=== PATIENT | female | born 1985 | race Caucasian/White ===

== ENCOUNTER 2017-12-12 13:24 | Inpatient (IN) | payer MEDICARE, MEDICAID ==
[2017-12-12] MEDS ORDERED: NS 0.9% 1000 ML* 1,000 ML IV ONE (13:30)
[2017-12-12 13:53] LABS: ABS Basophils 0.1 10^3/ul (0-0.2); ABS Eosinophils 0.1 10^3/ul (0-0.6); ABS Lymphocytes 1.6 10^3/ul (1.0-4.8); ABS Monocytes 0.6 10^3/ul (0-0.8); ABS Neutrophils 6.1 10^3/ul (1.5-7.7); ABS Nucleated RBC 0 10^3/ul; Eosinophil % 0.8 % (0-6); Hematocrit 34 % (35-47); Hemoglobin 11.1 g/dl (12.0-16.0); Lymphocyte % 18.5 % (25-47); Mean Corpuscular HGB Conc 33 g/dl (31-36); Mean Corpuscular Hemoglobin 28 pg (27-31); Mean Corpuscular Volume 85 fL (80-97); Mean Platelet Volume 8.1 um3 (7.4-10.4); Nucleated Red Blood Cells % 0; Platelet Count 342 10^3/ul (150-450); Red Blood Count 3.97 10^6/ul (4.00-5.40); Red Cell Distribution Width 15 % (10.5-15); White Blood Count 8.4 10^3/ul (3.5-10.8)
[2017-12-12 13:55] LABS: Urine Appearance Clear; Urine Blood Negative (Negative); Urine Color Yellow; Urine Ketones Negative (Negative); Urine Protein Negative (Negative); Urine Specific Gravity 1.005 (1.010-1.030); Urine Urobilinogen Negative (Negative)
[2017-12-12] MEDS ORDERED: Succinylcholine* 20 MG/ML 10 ML VIAL ONE (15:00)
[2017-12-12] MEDS ORDERED: Etomidate* 2 MG/ML 20 ML VIAL (40 MG) ONE (15:00)
[2017-12-12] MEDS ORDERED: Charcoal ACTIVATED* 25 GM/120 ML BTL NG TUBE ONE (15:22)
[2017-12-12] MEDS ORDERED: Propofol* 100 ML ONE (15:39)
[2017-12-12] MEDS ORDERED: Ondansetron INJ* 2 MG/ML VIAL IV ONE (15:42)
[2017-12-12] MEDS ORDERED: Ondansetron INJ* 2 MG/ML VIAL IV PRN (15:42)
--- NOTE | 2017-12-12 15:57 | RAD ---
INDICATION: Intubation COMPARISON: None TECHNIQUE: An AP portable view obtained at 1546 hours is submitted. FINDINGS: Bones/Soft Tissues: There are no acute bony findings. There is no endotracheal tube 4 cm above the yenifer. There is a nasogastric tube passing normally through the mediastinum Cardiomediastinal: The cardiomediastinal silhouette is normal. Lungs: There are no infiltrates. Pleura: There are no pleural effusions. Other: None IMPRESSION: ENDOTRACHEAL AND NASOGASTRIC TUBES IN EXPECTED POSITIONS. LUNGS CLEAR
[2017-12-12] MEDS ORDERED: Midazolam IV for DRIP* 100 MG in NS 0.9% 100 ML* 80 ML IV SCH (16:00)
[2017-12-12] MEDS ORDERED: Propofol* 500 MG/50 ML BTL IV SCH ×2 (16:00→17:00)
[2017-12-12] MEDS ORDERED: Pantoprazole IV* 40 MG IV SCH (16:00)
[2017-12-12] MEDS: NS 0.9% 1000 ML* 1,000 ML IV SCH (17:50)
[2017-12-12] MEDS: Midazolam IV for DRIP* 100 MG in NS 0.9% 100 ML* 80 ML IV SCH (18:33)
[2017-12-12] MEDS: PEG 3000 GI LAVAGE* 1 GALLON SCH ×6 (19:39→22:45)
--- NOTE | 2017-12-12 20:58 | RAD ---
INDICATION: Altered mental status. COMPARISON: There are no prior studies available for comparison. TECHNIQUE: Contiguous axial sections of the brain were obtained from the skull base to the vertex without contrast. FINDINGS: The ventricles, cisterns and sulci are within normal limits. No significant focal abnormality or mass effect is seen. There is no evidence for hemorrhage. No significant focal osseous abnormality is seen. The visualized portion of the paranasal sinuses and mastoid air cells appear clear. IMPRESSION: NO EVIDENCE FOR GROSS ACUTE INFARCT, MASS EFFECT OR HEMORRHAGE.
[2017-12-12] MEDS: Propofol* 100 ML IV SCH (21:22)
--- NOTE | 2017-12-12 22:24 | HP ---
CC: Dr. Yulissa Alvarado; Dr. Patrick * HISTORY AND PHYSICAL: DATE OF ADMISSION: 12/12/17 TIME OF EVALUATION: 3 p.m. PRIMARY CARE PROVIDER: Dr. Yulissa Alvarado CONSULTING CRITICAL CARE PHYSICIAN: Dr. Patrick. CHIEF COMPLAINT: Unresponsive. HISTORY OF PRESENT ILLNESS: Ms. Del Rio is a 32-year-old lady with a past medical history of depression, prior suicide attempt with overdose of psychiatric medications, who was brought in to the emergency room by EMS due to unresponsiveness. The patient is unresponsive, intubated at this time, and unable to provide any history. Her friend, Elizabeth العراقي, phone number [phone] provides the history at bedside. She states that she knows Ms. Del Rio for many years and that she works for her. She arrived at her home after 10 today and her friend felt that she was a little strange as she was not talking much, but she did mention that she had not slept well for the past 2 nights. Ms. Del Rio and Ms. العراقي worked together in the garden until 11:30 when she noticed that the patient's lips looked different. The friend states that the lips were swollen, but EMS commented that the lips were blue. The patient's friend states that she was unable to ambulate without help. They were able to bring her inside the home, but by the time she arrived, she was already unresponsive. EMS was called and as per their report, the patient was unresponsive. She received Narcan and Benadryl with no response and she remained unconscious for the entire transport. The patient was found to have medication bottles with her of gabapentin 600 mg she takes 1 tablet every night, dispensed 30 tablets and this was filled on ; bupropion extended release 150 mg 1 tablet p.o. twice a day, 60 tablets were dispensed on 11/28/17; and amitriptyline 10 mg 1 tablet p.o. at bedtime 30 tablets that were dispensed on 12/05/17. As per ED nurse, all the bottles were empty according to EMS report. The patient's friend thinks that she still had pills in her bottles, but the ones I have now in my hand, they are all empty. So, it is unclear if these are the medications she took and if she did it is unclear how many pills she took in the end. Poison Control was contacted and their recommendations was for intubation, NG tube placement with activated charcoal administration followed by bowel irrigation with polyethylene glycol. PAST MEDICAL HISTORY: Depression with prior history of 5 hospitalizations with 1 suicide attempt with psychiatric medications overdose leading to ICU admission at [facility]. This was obtained from a prior H and P from June 2007 and there is no other medical information available at this time. PAST SURGICAL HISTORY: Unable to obtain. MEDICATION LIST: 1. Alprazolam 0.25 to 0.5 mg p.o. q.6 hours p.r.n. anxiety. 2. Amitriptyline 10 mg p.o. at bedtime. 3. Bupropion SR 150 mg p.o. b.i.d. 4. Vitamin B12 1000 mcg p.o. daily. 5. Gabapentin 600 mg p.o. at bedtime. ALLERGIES: Not able to obtain any history of allergy from the patient as she is unresponsive. FAMILY HISTORY: As per records, mother and sister have a history of depression. No family history of suicide. As per her friend, Elizabeth العراقي, the patient is estranged from her family and does not have much contact. SOCIAL HISTORY: I am unable to obtain at this time. REVIEW OF SYSTEMS: Unable to obtain from the patient. PHYSICAL EXAMINATION VITAL SIGNS: Temperature 97.7, heart rate is 106, respiratory rate is 17, oxygen saturation is 100%, blood pressure is 131/77. HEENT: Pupils are equal, reactive to light. Moist mucous membranes. CHEST: Breath sounds present bilaterally with no added sounds. CVS: Normal S1, S2. Regular rate and rhythm. ABDOMEN: Soft. Bowel sounds are present. EXTREMITIES: No edema. NEURO: The patient is unresponsive even to painful stimuli at this point. LABORATORY DATA: The patient had a CBC that showed WBC of 8.4, hemoglobin 11.1 , hematocrit 34, platelets 342, 72% neutrophils. ABG shows a pH of 7.36, pCO2 of 38, pO2 of 65, bicarb 22. Chemistry showed a sodium of 136, potassium 3.9, chloride 108, bicarb 23, BUN 7, creatinine 0.89, glucose 87. Lactic acid 0.4. Calcium 8.4. Magnesium 1.9. LFTs are normal. Ammonia 28. TSH 0.9. Urinalysis was negative. Urine toxicology was positive for benzos and cannabinoids. Acetaminophen and serum alcohol level were negative. ASSESSMENT AND PLAN: Ms. Del Rio is a 32-year-old lady with a past medical history of depression and prior suicide attempt that presented to the emergency room after becoming unresponsive with suspected drug overdose. The patient will be admitted to the intensive care unit and I am going to check a CT of the brain to rule out [employer] issue. As per Poison Control recommendation, we are going to repeat an EKG in 2 hours and monitor her QT interval. She will be sedated with benzodiazepines ( midazolam) and we are going to proceed with bowel irrigation following the protocol that was sent from the Poison Control Center for whole bowel irrigation as tolerated. A consultation request was placed for Dr. Patrick to assume this patient's care. She will be monitored closely in the intensive care unit. DVT prophylaxis. Subcutaneous heparin. Code status is full. TIME SPENT: Approximately 70 minutes of critical care time were spent to complete the admission. [id number]/CPS #: [id number]
[2017-12-12] MEDS: Heparin VIAL(*) 5000 UNITS/ML VIAL (FIVE THOUSAND) SUBCUT SCH (22:41)
[2017-12-13] MEDS: PEG 3000 GI LAVAGE* 1 GALLON SCH ×14 (00:08→14:25)
[2017-12-13] MEDS: NS 0.9% 1000 ML* 1,000 ML IV SCH (00:10)
[2017-12-13 00:12] LABS: EGFR Non-African American 90.1 (>60)
[2017-12-13] MEDS: KCL 20 MEQ/100 ML IVPREMIX* 20 MEQ/100 ML BAG IV SCH ×2 (00:38→02:35)
[2017-12-13] MEDS: Chlorhexidine MOUTHWASH 0.12%* 15 ML UDC TOPICAL SCH ×4 (00:44→13:52)
[2017-12-13] MEDS: Midazolam IV for DRIP* 100 MG in NS 0.9% 100 ML* 80 ML IV SCH (02:16)
[2017-12-13] MEDS: Propofol* 100 ML IV SCH (03:20)
[2017-12-13] MEDS: Heparin VIAL(*) 5000 UNITS/ML VIAL (FIVE THOUSAND) SUBCUT SCH ×2 (05:47→15:28)
[2017-12-13 06:17] LABS: ABS Basophils 0.1 10^3/ul (0-0.2); ABS Eosinophils 0.1 10^3/ul (0-0.6); ABS Lymphocytes 1.1 10^3/ul (1.0-4.8); ABS Monocytes 1.1 10^3/ul (0-0.8); ABS Neutrophils 11.8 10^3/ul (1.5-7.7); ABS Nucleated RBC 0 10^3/ul; Eosinophil % 0.7 % (0-6); Hematocrit 33 % (35-47); Hemoglobin 10.9 g/dl (12.0-16.0); Lymphocyte % 7.9 % (25-47); Mean Corpuscular HGB Conc 33 g/dl (31-36); Mean Corpuscular Hemoglobin 28 pg (27-31); Mean Corpuscular Volume 85 fL (80-97); Mean Platelet Volume 7.9 um3 (7.4-10.4); Nucleated Red Blood Cells % 0; Platelet Count 343 10^3/ul (150-450); Red Blood Count 3.91 10^6/ul (4.00-5.40); Red Cell Distribution Width 16 % (10.5-15); White Blood Count 14.1 10^3/ul (3.5-10.8)
[2017-12-13 06:35] LABS: EGFR Non-African American 110.2 (>60)
[2017-12-13] MEDS ORDERED: fentaNYL* 50 MCG/ML 2 ML VIAL (100 MCG VIAL) IV SLOW PU ONE (11:18)
[2017-12-13] MEDS ORDERED: fentaNYL* 50 MCG/ML 2 ML VIAL (100 MCG VIAL) ONE (11:22)
[2017-12-13] MEDS ORDERED: Ondansetron 40 MG VIAL* 2 MG/ML 20 ML VIAL IV PRN (13:07)
[2017-12-13] MEDS ORDERED: LORazepam INJ* 2 MG/ML 1 ML VIAL ONE ×3 (13:27→13:35)
[2017-12-13] MEDS ORDERED: LORazepam INJ* 2 MG/ML 1 ML VIAL IV PUSH ONE ×3 (13:40→18:00)
[2017-12-13] MEDS ORDERED: Morphine INJ* 10 MG/ML 1 ML CARPUJECT IV PRN (14:01)
[2017-12-13] MEDS ORDERED: Acetaminophen TAB* 325 MG PO PRN (14:02)
--- NOTE | 2017-12-13 14:10 | PN ---
Progress Note - Progress Note Date of Service: 12/13/17 Note: CRITICAL CARE MEDICINE Date: 12/13/17 Time: 1300 SUBJECTIVE: Patient seen and examined. PHYSICAL EXAM: Vital Signs: Reviewed. Neurologic: awake on vent. following commands despite 50 prop. fields HEENT: pupils equal. Sclera anicteric. Trachea midline. Cardiovascular: S1 S2, little up; QT stable Respiratory: cpap 10/5 with great vol Abdomen: Soft, nt. obese, No r/g/r. Extremities: Warm. LABS: Reviewed. IMAGING: Reviewed. MEDICATIONS: Reviewed. ASSESSMENT: 32 F intentional overdose with intent to harm with toxic/metabolic encephalpathy acute resp failure, sec to above with intubation in ED charchoal, bowel irrigation overnight and improved status PLAN: Neurologic: off versed. prn benzos. wean off prop. Cardiovascular: perfusing. mobilizing fluid. can continue with fluid adjustments today and then off to po. remain on tele. qrs, qtc ok. Respiratory: well on cpap. following commands. can liberate from vent today. Gastrointestinal: can stop irrigation. will dc ogt with liberation from vent. po later Renal/Metabolic: stable. fluids. f/u ace Infectious Disease: no abx need Hematology: stable. hsq Endocrine: stable Musculoskeletal: oob Psych/Social: consult psych for tomorrow Supportive and preventative care as ordered. Disposition: ICU today and hopefully medically stable come tomorrow Code Status: Full Critical Care Time: 40min Kayla Patrick DO
[2017-12-13] MEDS: LORazepam INJ* 2 MG/ML 1 ML VIAL IV PUSH PRN ×5 (14:21→23:07)
[2017-12-13] MEDS ORDERED: Ziprasidone IM INJ* 20 MG/ML VIAL IM PRN (15:10)
--- NOTE | 2017-12-13 15:14 | PN ---
Progress Note - Progress Note Date of Service: 12/13/17 Note: CRITICAL CARE MEDICINE Date: 12/13/17 Time: 1430 Tolerating off vent, but quickly agitated and defiant. Security called. Hr to 150s. Ativan given 4mg and 4mg. Not showing physical threat to self or staff but affect concerning. Prns. 1:1 continued. Declining her heparin and will dc. Diet as able. mobilizing fluids but dc reddy when able. Disposition: ICU for now. Code Status: Full Critical Care Time: 10min Kayla Patrick DO
[2017-12-13] MEDS ORDERED: Morphine VIAL* 4 MG/ML VIAL (1 ml vial) IV PRN (17:33)
[2017-12-13] MEDS: NS 0.9% IVPB SCH (18:03)
[2017-12-13] MEDS: DEXMEDETOMIDINE IVPB SCH (18:03)
[2017-12-14] MEDS: LORazepam INJ* 2 MG/ML 1 ML VIAL IV PUSH PRN ×3 (01:53→11:05)
[2017-12-14] MEDS: NS 0.9% IVPB SCH ×5 (01:56→23:16)
[2017-12-14] MEDS: DEXMEDETOMIDINE IVPB SCH ×5 (01:56→23:16)
[2017-12-14 05:41] LABS: ABS Basophils 0.1 10^3/ul (0-0.2); ABS Eosinophils 0.2 10^3/ul (0-0.6); ABS Lymphocytes 0.9 10^3/ul (1.0-4.8); ABS Monocytes 0.9 10^3/ul (0-0.8); ABS Neutrophils 9.2 10^3/ul (1.5-7.7); ABS Nucleated RBC 0 10^3/ul; Eosinophil % 1.9 % (0-6); Hematocrit 31 % (35-47); Hemoglobin 10.3 g/dl (12.0-16.0); Lymphocyte % 7.9 % (25-47); Mean Corpuscular HGB Conc 33 g/dl (31-36); Mean Corpuscular Hemoglobin 28 pg (27-31); Mean Corpuscular Volume 85 fL (80-97); Mean Platelet Volume 8.1 um3 (7.4-10.4); Nucleated Red Blood Cells % 0; Platelet Count 294 10^3/ul (150-450); Red Blood Count 3.68 10^6/ul (4.00-5.40); Red Cell Distribution Width 16 % (10.5-15); White Blood Count 11.3 10^3/ul (3.5-10.8)
[2017-12-14 06:22] LABS: EGFR Non-African American 112.3 (>60)
[2017-12-14] MEDS ORDERED: Magnesium Sulfate 2 GM IV* 2 GM/50 ML BAG IVPB ONE (07:58)
[2017-12-14] MEDS ORDERED: Potassium Chlor TAB* 20 MEQ TAB.ER PO ONE (09:00)
--- NOTE | 2017-12-14 11:14 | PN ---
Progress Note - Progress Note Date of Service: 12/14/17 Note: CRITICAL CARE MEDICINE Date: 12/14/17 Time: 1030 SUBJECTIVE: Patient seen and examined. dad at bedside. PHYSICAL EXAM: Vital Signs: Reviewed. Neurologic: communicating. non focal HEENT: pupils equal. Sclera anicteric. Trachea midline. Cardiovascular: S1 S2, tachy Respiratory: clear Abdomen: Soft. Extremities: Warm. LABS: Reviewed. IMAGING: Reviewed. MEDICATIONS: Reviewed. ASSESSMENT: 32 F intentional overdose with intent to harm with toxic/metabolic encephalpathy acute resp failure, sec to above with intubation in ED charchoal, bowel irrigation overnight and improved status depression agitation PLAN: better but escalating agitation at times Now upset she can't go home Refusing even food this am and asking to sign out ama Refused heparin can dc reddy and flexseal benzos Did better last pm with precedex and continue to utilize today. hr still up some and wash out of tca should be cleared but allow hr to calm with more anxiolytic control pysch eval today but medially not ready for mhu today Remains 1:1 Supportive and preventative care as ordered. Disposition: ICU today and hopefully medically stable tomorrow for pysch needs Code Status: Full Critical Care Time: 25min FJayda Patrick DO
[2017-12-14] MEDS ORDERED: LORazepam INJ* 2 MG/ML 1 ML VIAL IV PUSH PRN (14:09)
[2017-12-14] MEDS ORDERED: Diazepam TAB(*) 5 MG PO PRN (14:09)
[2017-12-15 05:29] LABS: Hematocrit 34 % (35-47); Hemoglobin 10.5 g/dl (12.0-16.0); Mean Corpuscular HGB Conc 31 g/dl (31-36); Mean Corpuscular Hemoglobin 28 pg (27-31); Mean Corpuscular Volume 91 fL (80-97); Mean Platelet Volume 8.7 um3 (7.4-10.4); Platelet Count 234 10^3/ul (150-450); Red Blood Count 3.78 10^6/ul (4.00-5.40); Red Cell Distribution Width 16 % (10.5-15); White Blood Count 8.4 10^3/ul (3.5-10.8)
[2017-12-15] MEDS: NS 0.9% IVPB SCH (05:44)
[2017-12-15] MEDS: DEXMEDETOMIDINE IVPB SCH (05:44)
[2017-12-15] MEDS ORDERED: DEXMEDETOMIDINE IVPB SCH (08:08)
[2017-12-15] MEDS ORDERED: NS 0.9% IVPB SCH (08:08)
[2017-12-15] MEDS ORDERED: NS 0.9% 1000 ML* 1,000 ML IV ONE (08:09)
[2017-12-15] MEDS ORDERED: Potassium Chlor TAB* 20 MEQ TAB.ER PO ONE (08:09)
--- NOTE | 2017-12-15 10:44 | ED ---
Dick Doss Angela, scribed for Remy Reynoso MD on 12/12/17 at 1339 . Substance Abuse/Use - HPI Summary HPI Summary: This pt is a 32 y/o female presenting to [facility] via EMS for unresponsiveness today s/p suspected overdose. EMS reports the pt was at work when she was seen to go unresponsive. EMS states the pt is unresponsive but is breathing. Per EMS , pt was found to have empty bottles of Amitriptyline, Gabapentin, and Wellbutrin, which were recently filled. Time of ingestion of pills are unknown. EMS denies pt has had nausea or vomiting. EMS administered 2 mg of Narcan and 25 mg of Benadryl without effect. HPI IS LIMITED DUE TO LEVEL 5 CAVEAT - pt is unresponsive. - History Of Current Complaint Stated Complaint: UNRESPONSIVE Hx Obtained From: EMS Hx From Patient Unobtainable Due To: Other - Level 5 caveat - pt is unresponsive Ingestion History: Type/Name Of Drug - Amitriptyline, Gabapentin, and Wellbutrin , Amount Ingested - unknown, Approximate Time Of Ingestion - unknown Overdose Characteristics: Oral Timing Of Abuse: Binge Use Severity Currently: Severe Character: Lethargic Aggravating Factor(s): Other - unknown Alleviating Factor(s): Other - unknown Associated Signs And Symptoms: Intentional Ingestion - Allergies/Home Medications Allergies/Adverse Reactions: Allergies Allergy/AdvReac Type Severity Reaction Status Date / Time Unable to Assess Allergy Verified 12/12/17 14:24 Home Medications: Home Medications ALPRAZolam TAB* [Xanax TAB*] 0.25 - 0.5 mg PO Q6H PRN 12/12/17 [History Confirmed 12/12/17] Amitriptyline TAB* [Elavil TAB*] 10 mg PO BEDTIME 12/12/17 [History Confirmed ] Cyanocobalamin TAB* [Vitamin B12 TAB*] 1,000 mcg PO DAILY 12/12/17 [History Confirmed 12/12/17] Gabapentin CAP(*) [Neurontin 300 CAP(*)] 600 mg PO QPM 12/12/17 [History Confirmed 12/12/17] buPROPion SR TAB* [Wellbutrin SR TAB*] 150 mg PO BID 12/12/17 [History Confirmed 12/12/17] PMH/Surg Hx/FS Hx/Imm Hx Previously Healthy: No - unknown due to level 5 caveat - pt is unresponsive Cardiovascular History: Denies: Hx Hypertension Psychiatric History: Reports: Hx Depression Infectious Disease History: Denies: Traveled Outside the [place] in Last 30 Days - Family History Known Family History: Positive: Unknown - due to level 5 caveat - pt is unresponsive - Social History Alcohol Use: unknown due to level 5 caveat - pt is unresponsive Substance Use Comment - Amount & Last Used: UNKNOWN due to level 5 caveat - pt is unresponsive Smoking Status (MU): Unknown if Ever Smoked - due to level 5 caveat - pt is unresponsive Review of Systems - ROS Summary Review of Systems Summary: ROS IS LIMITED DUE TO LEVEL 5 CAVEAT - pt is unresponsive. Negative: Fever Negative: Vomiting, Nausea Neurological: Other - POS: unresponsive All Other Systems Reviewed And Are Negative: No Physical Exam - Summary Physical Exam Summary: VITAL SIGNS: Reviewed. GENERAL: Patient is an unresponsive female who is lying comfortable in the stretcher. Patient is keeping her own airway. She is saturating between 99-100% on room air. HEAD AND FACE: No signs of trauma. No ecchymosis, hematomas or skull depressions. No sinus tenderness. EYES: Pupils are reactive to light. No injected conjunctiva, no nystagmus. EARS: Hearing grossly intact. Ear canals and tympanic membranes are within normal limits. MOUTH: Oropharynx within normal limits. NECK: Supple, trachea is midline, no adenopathy, no JVD, no carotid bruit, no c- spine tenderness, neck with full ROM. CHEST: Symmetric, no tenderness at palpation LUNGS: Clear to auscultation bilaterally. No wheezing or crackles. Pt is keeping her own airway. CVS: Regular rate and rhythm, S1 and S2 present, no murmurs or gallops appreciated. ABDOMEN: Soft, non-tender. No signs of distention. No rebound no guarding, and no masses palpated. Bowel sounds are normal. EXTREMITIES: FROM in all major joints, no edema, no cyanosis or clubbing. NEURO: Pt is obtunded but responds to painful stimuli. SKIN: Dry and warm GCS: 8 Triage Information Reviewed: Yes Vital Signs On Initial Exam: Initial Vitals Temp Pulse Resp BP Pulse Ox 97.7 F 110 16 127/73 94 12/12/17 13:43 12/12/17 13:43 12/12/17 13:43 12/12/17 13:43 12/12/17 13:43 Vital Signs Reviewed: Yes Completion Of Physical Exam Limited Due To: Level 5 - pt is unresponsive Diagnostics - Vital Signs Vital Signs Temp Pulse Resp BP Pulse Ox 12/12/17 15:02 106 17 131/77 100 12/12/17 15:00 107 15 100 12/12/17 14:47 112 17 137/85 100 12/12/17 14:10 109 16 124/80 98 12/12/17 14:00 113 16 124/82 97 12/12/17 13:49 110 16 94 12/12/17 13:43 97.7 F 110 16 127/73 94 - Laboratory Lab Results: Lab Results 12/12/17 12/12/17 12/12/17 Range/Units 13:30 13:30 13:30 WBC 8.4 (3.5-10.8) 10^3/ul RBC 3.97 L (4.00-5.40) 10^6/ul Hgb 11.1 L (12.0-16.0) g/dl Hct 34 L (35-47) % MCV 85 (80-97) fL MCH 28 (27-31) pg MCHC 33 (31-36) g/dl RDW 15 (10.5-15) % Plt Count 342 (150-450) 10^3/ul MPV 8.1 (7.4-10.4) um3 Neut % (Auto) 72.6 (38-83) % Lymph % (Auto) 18.5 L (25-47) % Floyd % (Auto) 7.2 H (0-7) % Eos % (Auto) 0.8 (0-6) % Baso % (Auto) 0.9 (0-2) % Absolute Neuts (auto) 6.1 (1.5-7.7) 10^3/ul Absolute Lymphs (auto) 1.6 (1.0-4.8) 10^3/ul Absolute Monos (auto) 0.6 (0-0.8) 10^3/ul Absolute Eos (auto) 0.1 (0-0.6) 10^3/ul Absolute Basos (auto) 0.1 (0-0.2) 10^3/ul Absolute Nucleated RBC 0 10^3/ul Nucleated RBC % 0 ABG pH (7.35-7.45) ABG pCO2 (35-45) mmHg ABG pO2 (80-100) mmHg ABG HCO3 (19-31) mmol/L ABG O2 Saturation (95-98) % ABG Base Excess (-2.0-2.0) Sodium 136 L (139-145) mmol/L Potassium 3.9 (3.5-5.0) mmol/L Chloride 108 (101-111) mmol/L Carbon Dioxide 23 (22-32) mmol/L Anion Gap 5 (2-11) mmol/L BUN 7 (6-24) mg/dL Creatinine 0.89 (0.51-0.95) mg/dL Est GFR ( Amer) 95.1 (>60) Est GFR (Non-Af Amer) 74.0 (>60) BUN/Creatinine Ratio 7.9 L (8-20) Glucose 87 (70-100) mg/dL Lactic Acid (0.5-2.0) mmol/L Calcium 8.4 L (8.6-10.3) mg/dL Magnesium 1.9 (1.9-2.7) mg/dL Total Bilirubin 0.30 (0.2-1.0) mg/dL AST 12 L (13-39) U/L ALT 10 (7-52) U/L Alkaline Phosphatase 48 (34-104) U/L Ammonia 28 (16-53) mcmol/L Total Creatine Kinase 55 (10-223) U/L Troponin I 0.00 (<0.04) ng/mL Total Protein 5.6 L (6.4-8.9) g/dL Albumin 3.6 (3.2-5.2) g/dL Globulin 2.0 (2-4) g/dL Albumin/Globulin Ratio 1.8 (1-3) TSH 0.98 (0.34-5.60) mcIU/mL Beta HCG, Quant < 0.60 mIU/mL Urine Color Urine Appearance Urine pH (5-9) Ur Specific [place] (1.010-1.030) Urine Protein (Negative) Urine Ketones (Negative) Urine Blood (Negative) Urine Nitrate (Negative) Urine Bilirubin (Negative) Urine Urobilinogen (Negative) Ur Leukocyte Esterase (Negative) Urine Glucose (Negative) Urine Opiates Screen (None Detect) Acetaminophen < 15 mcg/mL Ur Barbiturates Screen (None Detect) Ur Phencyclidine Scrn (None Detect) Ur Amphetamines Screen (None Detect) U Benzodiazepines Scrn (None Detect) Urine Cocaine Screen (None Detect) U Cannabinoids Screen (None Detect) Serum Alcohol < 10 (<10) mg/dL 12/12/17 12/12/17 12/12/17 Range/Units 13:30 13:30 13:41 WBC (3.5-10.8) 10^3/ul RBC (4.00-5.40) 10^6/ul Hgb (12.0-16.0) g/dl Hct (35-47) % MCV (80-97) fL MCH (27-31) pg MCHC (31-36) g/dl RDW (10.5-15) % Plt Count (150-450) 10^3/ul MPV (7.4-10.4) um3 Neut % (Auto) (38-83) % Lymph % (Auto) (25-47) % Floyd % (Auto) (0-7) % Eos % (Auto) (0-6) % Baso % (Auto) (0-2) % Absolute Neuts (auto) (1.5-7.7) 10^3/ul Absolute Lymphs (auto) (1.0-4.8) 10^3/ul Absolute Monos (auto) (0-0.8) 10^3/ul Absolute Eos (auto) (0-0.6) 10^3/ul Absolute Basos (auto) (0-0.2) 10^3/ul Absolute Nucleated RBC 10^3/ul Nucleated RBC % ABG pH 7.36 (7.35-7.45) ABG pCO2 38 (35-45) mmHg ABG pO2 65 L (80-100) mmHg ABG HCO3 22.0 (19-31) mmol/L ABG O2 Saturation 94.3 L (95-98) % ABG Base Excess -3.6 L (-2.0-2.0) Sodium (139-145) mmol/L Potassium (3.5-5.0) mmol/L Chloride (101-111) mmol/L Carbon Dioxide (22-32) mmol/L Anion Gap (2-11) mmol/L BUN (6-24) mg/dL Creatinine (0.51-0.95) mg/dL Est GFR ( Amer) (>60) Est GFR (Non-Af Amer) (>60) BUN/Creatinine Ratio (8-20) Glucose (70-100) mg/dL Lactic Acid 0.4 L (0.5-2.0) mmol/L Calcium (8.6-10.3) mg/dL Magnesium (1.9-2.7) mg/dL Total Bilirubin (0.2-1.0) mg/dL AST (13-39) U/L ALT (7-52) U/L Alkaline Phosphatase (34-104) U/L Ammonia (16-53) mcmol/L Total Creatine Kinase (10-223) U/L Troponin I (<0.04) ng/mL Total Protein (6.4-8.9) g/dL Albumin (3.2-5.2) g/dL Globulin (2-4) g/dL Albumin/Globulin Ratio (1-3) TSH (0.34-5.60) mcIU/mL Beta HCG, Quant mIU/mL Urine Color Yellow Urine Appearance Clear Urine pH 5.0 (5-9) Ur Specific [place] 1.005 L (1.010-1.030) Urine Protein Negative (Negative) Urine Ketones Negative (Negative) Urine Blood Negative (Negative) Urine Nitrate Negative (Negative) Urine Bilirubin Negative (Negative) Urine Urobilinogen Negative (Negative) Ur Leukocyte Esterase Negative (Negative) Urine Glucose Negative (Negative) Urine Opiates Screen (None Detect) Acetaminophen mcg/mL Ur Barbiturates Screen (None Detect) Ur Phencyclidine Scrn (None Detect) Ur Amphetamines Screen (None Detect) U Benzodiazepines Scrn (None Detect) Urine Cocaine Screen (None Detect) U Cannabinoids Screen (None Detect) Serum Alcohol (<10) mg/dL 12/12/17 Range/Units 13:41 WBC (3.5-10.8) 10^3/ul RBC (4.00-5.40) 10^6/ul Hgb (12.0-16.0) g/dl Hct (35-47) % MCV (80-97) fL MCH (27-31) pg MCHC (31-36) g/dl RDW (10.5-15) % Plt Count (150-450) 10^3/ul MPV (7.4-10.4) um3 Neut % (Auto) (38-83) % Lymph % (Auto) (25-47) % Floyd % (Auto) (0-7) % Eos % (Auto) (0-6) % Baso % (Auto) (0-2) % Absolute Neuts (auto) (1.5-7.7) 10^3/ul Absolute Lymphs (auto) (1.0-4.8) 10^3/ul Absolute Monos (auto) (0-0.8) 10^3/ul Absolute Eos (auto) (0-0.6) 10^3/ul Absolute Basos (auto) (0-0.2) 10^3/ul Absolute Nucleated RBC 10^3/ul Nucleated RBC % ABG pH (7.35-7.45) ABG pCO2 (35-45) mmHg ABG pO2 (80-100) mmHg ABG HCO3 (19-31) mmol/L ABG O2 Saturation (95-98) % ABG Base Excess (-2.0-2.0) Sodium (139-145) mmol/L Potassium (3.5-5.0) mmol/L Chloride (101-111) mmol/L Carbon Dioxide (22-32) mmol/L Anion Gap (2-11) mmol/L BUN (6-24) mg/dL Creatinine (0.51-0.95) mg/dL Est GFR ( Amer) (>60) Est GFR (Non-Af Amer) (>60) BUN/Creatinine Ratio (8-20) Glucose (70-100) mg/dL Lactic Acid (0.5-2.0) mmol/L Calcium (8.6-10.3) mg/dL Magnesium (1.9-2.7) mg/dL Total Bilirubin (0.2-1.0) mg/dL AST (13-39) U/L ALT (7-52) U/L Alkaline Phosphatase (34-104) U/L Ammonia (16-53) mcmol/L Total Creatine Kinase (10-223) U/L Troponin I (<0.04) ng/mL Total Protein (6.4-8.9) g/dL Albumin (3.2-5.2) g/dL Globulin (2-4) g/dL Albumin/Globulin Ratio (1-3) TSH (0.34-5.60) mcIU/mL Beta HCG, Quant mIU/mL Urine Color Urine Appearance Urine pH (5-9) Ur Specific [place] (1.010-1.030) Urine Protein (Negative) Urine Ketones (Negative) Urine Blood (Negative) Urine Nitrate (Negative) Urine Bilirubin (Negative) Urine Urobilinogen (Negative) Ur Leukocyte Esterase (Negative) Urine Glucose (Negative) Urine Opiates Screen None detected (None Detect) Acetaminophen mcg/mL Ur Barbiturates Screen None detected (None Detect) Ur Phencyclidine Scrn None detected (None Detect) Ur Amphetamines Screen None detected (None Detect) U Benzodiazepines Scrn Presumptive positive A (None Detect) Urine Cocaine Screen None detected (None Detect) U Cannabinoids Screen Presumptive positive A (None Detect) Serum Alcohol (<10) mg/dL Result Diagrams: 12/12/17 13:30 12/12/17 18:00 Lab Statement: Any lab studies that have been ordered have been reviewed, and results considered in the medical decision making process. - Radiology Chest XR s/p intubation Xray Interpretation: Positive (See Comments) - IMPRESSION: Endotracheal and nasogastric tubes in expected positions. Lungs clear. Dr. Reynoso has reviewed this radiology report. Radiology Interpretation Completed By: Radiologist - EKG 13:22 Cardiac Rate: Tachycardia - at 118 bpm EKG Rhythm: Sinus Tachycardia EKG Interpretation: No ST elevations. QT is 335. 14:07 Cardiac Rate: Tachycardia - at 109 bpm EKG Rhythm: Sinus Tachycardia EKG Interpretation: No ST elevations. Re-Evaluation - Re-Evaluation First Eval Re-Evaluation Time: 15:18 Comment: I intubated the pt. Intubation was successful. Pt is stable. Course/Dx - Course Course Of Treatment: Procedure - Endotracheal Intubation. Permit was implied secondary to emergent situation. An LMA and bougie were placed within arm's reach. A Glidescope blade was inserted into the oropharynx at which time the vocal cords were visualized. A 7.5 Indonesian endotracheal tube was inserted and visualized going through the vocal cords. The stylet was removed. Colorimetric change was visualized on the CO2 meter. Breath sounds were heard in both lung colby equally. The endotracheal tube was placed at 23 cm, measured at the teeth. Portable chest x-ray ordered for confirmation of tube level. Post intubation sedation ordered. Intubation was made at the first attempt. No complications were encountered. Assessment/Plan: Pt is a 32 y/o female who presents for unresponsiveness today s /p suspected overdose. EMS reports the pt was at work when she was seen to go unresponsive. Pt was found to have empty bottles of Amitriptyline, Gabapentin, and Wellbutrin, which were recently filled. Test results shows slight anemia. Urinalysis is negative for UTI. Urine toxicology is positive for benzodiazepines and cannabinoids. Dr. Patrick, java security architect, did not require intubation immediately until we obtained blood tests and re-assess the pt. We spoke with poison control and they recommend for the pt to be intubated with an NG tube and be given charcoal. I discussed the case with Dr. Parks, hospitalist , who will admit pt to the ICU and agrees with poison control. Therefore, I went ahead and intubated the pt without any complications during the first attempt, please see note. An NG tube was placed and charcoal was given to the pt. Pt was also given Propofol for sedation. At this time the pt was admitted to Dr. Bello services. She is stable. Pt will need a pending mental health evaluation when she is alert and oriented x3. - Diagnoses Provider Diagnoses: Overdose, Lethargy - Physician Notifications Discussed Care Of Patient With: Nisa Parks Time Discussed With Above Provider: 14:24 Instructed by Provider To: Other - I discussed pt care with Dr. Parks, hospitalist, who accepted the pt for admission. - Critical Care Time Critical Care Time: 75-104 min Discharge - Sign-Out/Discharge Documenting (check all that apply): Discharge/Admit/Transfer - Admit - Discharge Plan Condition: Stable Disposition: ADMITTED TO [facility] documentation as recorded by the Dick villalpando Angela accurately reflects the service I personally performed and the decisions made by , Remy Reynoso MD.
--- NOTE | 2017-12-15 12:52 | PN ---
Progress Note - Progress Note Date of Service: 12/15/17 Note: CRITICAL CARE MEDICINE Date: 12/14/17 Time: 1100 SUBJECTIVE: Patient seen and examined. better. more docile but refusing meds and food. was a bit shaking on feet for staff. PHYSICAL EXAM: Vital Signs: Reviewed. Neurologic: communicating. non focal HEENT: pupils equal. Sclera anicteric. Trachea midline. Cardiovascular: S1 S2, tachy Respiratory: clear Abdomen: Soft. Extremities: Warm. LABS: Reviewed. IMAGING: Reviewed. MEDICATIONS: Reviewed. ASSESSMENT: 32 F intentional overdose with intent to harm with toxic/metabolic encephalpathy acute resp failure, sec to above with intubation in ED charchoal, bowel irrigation overnight and improved status depression agitation PLAN: better overall but had touch of acid this am and concern of either mild LA from LR that was given vs still mild depletion with wash out. Given 1 L fluid. Can f/u labs again tomorrow to ensure. not indicating any ailment from degree of acid. still upset she can't go home. can go to floor today and hopefully psych tomorrow. less prns benzos Eval with quinten about resuming regimen and f/u for admit Remains 1:1 Supportive and preventative care as ordered. Disposition: floor with tele Code Status: Full Critical Care Time: 25min Kayla Patrick DO
[2017-12-15] MEDS ORDERED: LORazepam INJ* 2 MG/ML 1 ML VIAL IV PUSH PRN (12:58)
[2017-12-15] MEDS: buPROPion SR TAB.SR* 150 MG PO SCH (21:33)
[2017-12-15] MEDS: Amitriptyline TAB* 10 MG PO SCH (21:33)
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
[2017-12-16 07:01] LABS: EGFR Non-African American 110.2 (>60)
[2017-12-16] MEDS: buPROPion SR TAB.SR* 150 MG PO SCH ×2 (08:44→21:13)
--- NOTE | 2017-12-16 09:12 | PN ---
Subjective Date of Service: 12/16/17 Interval History: HOSPITALIST PROGRESS NOTE Patient seen and examined at bedside. Care reviewed and d/w Perla Sinha RN. She offers no complaints at this time. In good spirits, denies pain, palpitations. Tolerating diet, appetite is good. Family History: Unchanged from Admission Social History: Unchanged from Admission Past Medical History: Unchanged from Admission Objective Active Medications: Acetaminophen (Tylenol Tab*) 650 mg PO Q6H PRN PRN Reason: FEVER/PAIN Alprazolam (Xanax Tab*) 0.5 mg PO Q6H PRN PRN Reason: ANXIETY Amitriptyline HCl (Elavil Tab*) 10 mg PO BEDTIME [facility] Last Admin: 12/15/17 21:33 Dose: 10 mg Bupropion HCl (Wellbutrin Sr Tab*) 150 mg PO BID [facility] Last Admin: 12/16/17 08:44 Dose: 150 mg Lorazepam (Ativan Inj*) 1 mg IV PUSH Q4H PRN PRN Reason: AGITATION Ondansetron HCl (Zofran 40 Mg Vial*) 4 mg IV Q6H PRN PRN Reason: NAUSEA Ziprasidone (Geodon Im Inj*) 10 mg IM Q8H PRN PRN Reason: AGITATION - SEVERE Last Admin: 12/13/17 17:45 Dose: 10 mg Vital Signs - 8 hr 12/16/17 12/16/17 07:46 07:48 Temperature 97.6 F Pulse Rate 109 Respiratory 18 20 Rate Blood Pressure 120/58 (mmHg) O2 Sat by Pulse 99 Oximetry Oxygen Devices in Use Now: None Appearance: Young lady lying in bed in NAD. Eyes: No Scleral Icterus Ears/Nose/Mouth/Throat: Mucous Membranes Moist Neck: Trachea Midline Respiratory: Symmetrical Chest Expansion and Respiratory Effort, Clear to Auscultation Cardiovascular: NL Sounds; No Murmurs; No JVD, RRR Neurological: Alert and Oriented x 3, NL Muscle Strength and Tone Result Diagrams: 12/15/17 05:20 12/16/17 06:03 Assess/Plan/Problems-Billing Assessment: Ms Del Rio is a 32yo F with PMH of borderline personality disorder, prior suicide attempts, who presented to ED unresponsive due to intentional polydrug overdose. - Patient Problems (1) Overdose Comment: - Intentional overdose of alprazolam, gabapentin, amitriptyline, Bupropion SR with intent to harm self. - Mental status is back at baseline, patient is apologetic and pleasant. - Continue 1:1 observation, but may go outside with supervision. - EKG shows no QT/QTc prolongation - d/c Telemetry. - Awaiting bed at [facility] for transfer. (2) DVT prophylaxis Comment: - Ambulation. (3) Full code status Status and Disposition: Inpatient.
[2017-12-16] MEDS: Amitriptyline TAB* 10 MG PO SCH (21:13)
[2017-12-17] MEDS: buPROPion SR TAB.SR* 150 MG PO SCH ×2 (09:03→20:42)
--- NOTE | 2017-12-17 13:34 | PN ---
Subjective Date of Service: 12/17/17 Interval History: HOSPITALIST PROGRESS NOTE Patient seen and examined at bedside. Care reviewed and d/w Elisha Greene RN. She offers no new complaints. Gets emotional requesting to be discharged home. Family History: Unchanged from Admission Social History: Unchanged from Admission Past Medical History: Unchanged from Admission Objective Active Medications: Acetaminophen (Tylenol Tab*) 650 mg PO Q6H PRN PRN Reason: FEVER/PAIN Alprazolam (Xanax Tab*) 0.5 mg PO Q6H PRN PRN Reason: ANXIETY Amitriptyline HCl (Elavil Tab*) 10 mg PO BEDTIME [facility] Last Admin: 12/16/17 21:13 Dose: 10 mg Bupropion HCl (Wellbutrin Sr Tab*) 150 mg PO BID [facility] Last Admin: 12/17/17 09:03 Dose: 150 mg Ziprasidone (Geodon Im Inj*) 10 mg IM Q8H PRN PRN Reason: AGITATION - SEVERE Last Admin: 12/13/17 17:45 Dose: 10 mg Vital Signs - 8 hr 12/17/17 12/17/17 12/17/17 08:00 08:30 11:07 Temperature 98.0 F 98.7 F Pulse Rate 102 114 Respiratory 16 16 16 Rate Blood Pressure 137/76 132/75 (mmHg) O2 Sat by Pulse 96 99 Oximetry Oxygen Devices in Use Now: None Appearance: Young lady sitting up in bed in NAD. Eyes: No Scleral Icterus Ears/Nose/Mouth/Throat: Mucous Membranes Moist Neck: Trachea Midline Neurological: Alert and Oriented x 3, NL Muscle Strength and Tone Result Diagrams: 12/15/17 05:20 12/16/17 06:03 Assess/Plan/Problems-Billing Assessment: Ms Del Rio is a 32yo F with PMH of borderline personality disorder, prior suicide attempts, who presented to ED unresponsive due to intentional polydrug overdose. - Patient Problems (1) Overdose Comment: - Intentional overdose of alprazolam, gabapentin, amitriptyline, Bupropion SR with intent to harm self. - Mental status is back at baseline, patient is apologetic and pleasant. - Continue 1:1 observation, but may go outside with supervision. - Awaiting bed availability at [facility]. - Patient cannot leave AMA as her admission to [facility] is involuntary. - Awaiting bed at [facility] for transfer. (2) DVT prophylaxis Comment: - Ambulation. (3) Full code status Status and Disposition: Inpatient.
--- NOTE | 2017-12-17 14:20 | CONSULT ---
Identification - Patient Identification Reason for Psychiatric Consultation: Suicidal Ideation, Other - Attemped suicide requiring ICU care and now on Med. floor -: Patient is a 32 year old, F admitted on 12/12/17. - MHU Identification Employment Status: Employed Hx Psychiatric Hospitalization: Yes - On [facility] 10 years ago. Arrived to Hospital Via: Ambulatory History - Objective HPI: 32 y/o single, employed W[employer] with h/o mood instability, BPD and Cannabis use D/O admitted to ICU following an intentional OD on multiple prescription meds in the context of sudden loss of her therapist of 6 months at the clinic. Today she says that was a mistake and she was sorry. Appears to be minimizing her mental health problems with an intention to be discharged. Lab Results: Laboratory Tests 12/12/17 12/12/17 12/12/17 18:00 22:04 23:48 WBC RBC Hgb Hct MCV MCH MCHC RDW Plt Count MPV Neut % (Auto) Lymph % (Auto) [place] % (Auto) Eos % (Auto) Baso % (Auto) Absolute Neuts (auto) Absolute Lymphs (auto) Absolute Monos (auto) Absolute Eos (auto) Absolute Basos (auto) Absolute Nucleated RBC Nucleated RBC % Sodium 137 L 139 Potassium 3.5 3.4 L Chloride 110 112 H Carbon Dioxide 20 L 20 L Anion Gap 7 7 BUN 5 L 4 L Creatinine 0.71 0.75 Est GFR ( Amer) 123.5 115.9 Est GFR (Non-Af Amer) 96.0 90.1 BUN/Creatinine Ratio 7.0 L 5.3 L Glucose 89 100 Calcium 7.4 L 7.7 L Phosphorus Magnesium 1.7 L 1.9 Total Bilirubin AST ALT Alkaline Phosphatase Ammonia Total Creatine Kinase 57 Total Protein Albumin Globulin Albumin/Globulin Ratio Salicylates < 2.50 12/13/17 12/13/17 12/14/17 06:05 06:05 05:30 WBC 14.1 H 11.3 H RBC 3.91 L 3.68 L Hgb 10.9 L 10.3 L Hct 33 L 31 L MCV 85 85 MCH 28 28 MCHC 33 33 RDW 16 H 16 H Plt Count 343 294 MPV 7.9 8.1 Neut % (Auto) 83.3 H 81.6 Lymph % (Auto) 7.9 L 7.9 L [place] % (Auto) 7.6 H 8.1 H Eos % (Auto) 0.7 1.9 Baso % (Auto) 0.5 0.5 Absolute Neuts (auto) 11.8 H 9.2 H Absolute Lymphs (auto) 1.1 0.9 L Absolute Monos (auto) 1.1 H 0.9 H Absolute Eos (auto) 0.1 0.2 Absolute Basos (auto) 0.1 0.1 Absolute Nucleated RBC 0 0 Nucleated RBC % 0 0 Sodium 143 Potassium 3.8 Chloride 114 H Carbon Dioxide 24 Anion Gap 5 BUN 3 L Creatinine 0.63 Est GFR ( Amer) 141.7 Est GFR (Non-Af Amer) 110.2 BUN/Creatinine Ratio 4.8 L Glucose 92 Calcium 7.8 L Phosphorus 2.9 Magnesium 2.0 Total Bilirubin AST ALT Alkaline Phosphatase Ammonia Total Creatine Kinase Total Protein Albumin Globulin Albumin/Globulin Ratio Salicylates 12/14/17 12/14/17 12/15/17 05:30 05:30 05:20 WBC 8.4 RBC 3.78 L Hgb 10.5 L Hct 34 L MCV 91 MCH 28 MCHC 31 RDW 16 H Plt Count 234 MPV 8.7 Neut % (Auto) Lymph % (Auto) [place] % (Auto) Eos % (Auto) Baso % (Auto) Absolute Neuts (auto) Absolute Lymphs (auto) Absolute Monos (auto) Absolute Eos (auto) Absolute Basos (auto) Absolute Nucleated RBC Nucleated RBC % Sodium 140 Potassium 3.2 L Chloride 110 Carbon Dioxide 23 Anion Gap 7 BUN 4 L Creatinine 0.62 Est GFR ( Amer) 144.4 Est GFR (Non-Af Amer) 112.3 BUN/Creatinine Ratio 6.5 L Glucose 95 Calcium 8.2 L Phosphorus 2.4 L Magnesium 1.7 L Total Bilirubin 0.40 AST 14 ALT 10 Alkaline Phosphatase 59 Ammonia 48 Total Creatine Kinase Total Protein 5.0 L Albumin 3.1 L Globulin 1.9 L Albumin/Globulin Ratio 1.6 Salicylates 12/15/17 12/15/17 12/16/17 05:20 06:09 06:03 WBC RBC Hgb Hct MCV MCH MCHC RDW Plt Count MPV Neut % (Auto) Lymph % (Auto) [place] % (Auto) Eos % (Auto) Baso % (Auto) Absolute Neuts (auto) Absolute Lymphs (auto) Absolute Monos (auto) Absolute Eos (auto) Absolute Basos (auto) Absolute Nucleated RBC Nucleated RBC % Sodium 137 139 Potassium TNP 3.4 L 3.6 Chloride 108 109 Carbon Dioxide 17 L 20 L Anion Gap 12 H 10 BUN 7 5 L Creatinine 0.71 0.63 Est GFR ( Amer) 123.5 141.7 Est GFR (Non-Af Amer) 96.0 110.2 BUN/Creatinine Ratio 9.9 7.9 L Glucose 73 76 Calcium 8.3 L 8.8 Phosphorus Magnesium Total Bilirubin 0.30 AST 11 L ALT 9 Alkaline Phosphatase 66 Ammonia Total Creatine Kinase Total Protein 5.8 L Albumin 3.4 Globulin 2.4 Albumin/Globulin Ratio 1.4 Salicylates Exam Appearance: Healthy Appearing, Thin Framed Hygiene: Normal Grooming: Fairly Well Kept Psychomotor Activities: Normal Exhibits Abnormal Movement: No Attitude and Relatedness: Manipulative Eye Contact: Fair - Speech Quality: Unpressured Latencies: Normal Quantity: Terse Patient's Decription of Mood: "Okay" Observed Affect: Depressed Patient's Thought Process: Coherent, Circumstantial Thought Content: No Passive Wish, No Suicidal Planning, No Homicidal Ideation, No Paranoid Ideation Experiencing Hallucinations: No, Sensorium is Clear Type of Hallucinations: Visual: No, Auditory: No, Command: No Level of Consciousness: Alert Orientation: Yes Intact, Yes Orientated to Time, Yes Orientated to Place, Yes Orientated to Person Impulse Control: Impaired Insight and Judgement: Impaired Impression - Impression Clinical Impression: This is a 32 y/o female with another admission to this unit 10 years ago who has diognoses of BPD and mood disregulation is admitted on ICU following an intentional OD on multiple prescription meds. Medically cleared and will need transfer to [facility] when bed available. Merits Inpatient Hospitalization: Yes Problem List - MHU Problems Type of Problem: Impulse Control Status of Problem: Active Type of Problem: Mood Status of Problem: Active Plan - Treatment Plan Continued Medication Management: Continue Outpt Medication Medications: Current Medications Acetaminophen (Tylenol Tab*) 650 mg PO Q6H PRN PRN Reason: FEVER/PAIN Alprazolam (Xanax Tab*) 0.5 mg PO Q6H PRN PRN Reason: ANXIETY Amitriptyline HCl (Elavil Tab*) 10 mg PO BEDTIME [facility] Last Admin: 12/16/17 21:13 Dose: 10 mg Bupropion HCl (Wellbutrin Sr Tab*) 150 mg PO BID [facility] Last Admin: 12/17/17 09:03 Dose: 150 mg Ziprasidone (Geodon Im Inj*) 10 mg IM Q8H PRN PRN Reason: AGITATION - SEVERE Last Admin: 12/13/17 17:45 Dose: 10 mg - Discharge Plan Discharge Plan: Inpatient Hospitalization - Transfer to a different hospita [facility] as there is no beds available here.
[2017-12-17] MEDS: Amitriptyline TAB* 10 MG PO SCH (20:42)
[2017-12-18] MEDS: buPROPion SR TAB.SR* 150 MG PO SCH ×2 (07:49→20:17)
[2017-12-18] MEDS ORDERED: Zolpidem TAB* 5 MG PO PRN (12:28)
[2017-12-18] MEDS: ALPRAZolam TAB* 0.5 MG PO PRN (12:46)
--- NOTE | 2017-12-18 14:04 | CONSULT ---
Identification - Patient Identification Reason for Psychiatric Consultation: Suicidal Ideation -: Patient is a 32 year old, F admitted on 12/12/17. - MHU Identification Employment Status: Employed Hx Psychiatric Hospitalization: Yes History - Objective HPI: Taylor remains depressed with a tearful, constricted affect. Complains that sleep has been poor, despite amitriptyline. She denies SI and would like to go home. She is on a 1:1 for safety. Lab Results: Laboratory Tests 12/12/17 12/12/17 12/12/17 18:00 22:04 23:48 WBC RBC Hgb Hct MCV MCH MCHC RDW Plt Count MPV Neut % (Auto) Lymph % (Auto) Lee % (Auto) Eos % (Auto) Baso % (Auto) Absolute Neuts (auto) Absolute Lymphs (auto) Absolute Monos (auto) Absolute Eos (auto) Absolute Basos (auto) Absolute Nucleated RBC Nucleated RBC % Sodium 137 L 139 Potassium 3.5 3.4 L Chloride 110 112 H Carbon Dioxide 20 L 20 L Anion Gap 7 7 BUN 5 L 4 L Creatinine 0.71 0.75 Est GFR ( Amer) 123.5 115.9 Est GFR (Non-Af Amer) 96.0 90.1 BUN/Creatinine Ratio 7.0 L 5.3 L Glucose 89 100 Calcium 7.4 L 7.7 L Phosphorus Magnesium 1.7 L 1.9 Total Bilirubin AST ALT Alkaline Phosphatase Ammonia Total Creatine Kinase 57 Total Protein Albumin Globulin Albumin/Globulin Ratio Salicylates < 2.50 12/13/17 12/13/17 12/14/17 06:05 06:05 05:30 WBC 14.1 H 11.3 H RBC 3.91 L 3.68 L Hgb 10.9 L 10.3 L Hct 33 L 31 L MCV 85 85 MCH 28 28 MCHC 33 33 RDW 16 H 16 H Plt Count 343 294 MPV 7.9 8.1 Neut % (Auto) 83.3 H 81.6 Lymph % (Auto) 7.9 L 7.9 L Lee % (Auto) 7.6 H 8.1 H Eos % (Auto) 0.7 1.9 Baso % (Auto) 0.5 0.5 Absolute Neuts (auto) 11.8 H 9.2 H Absolute Lymphs (auto) 1.1 0.9 L Absolute Monos (auto) 1.1 H 0.9 H Absolute Eos (auto) 0.1 0.2 Absolute Basos (auto) 0.1 0.1 Absolute Nucleated RBC 0 0 Nucleated RBC % 0 0 Sodium 143 Potassium 3.8 Chloride 114 H Carbon Dioxide 24 Anion Gap 5 BUN 3 L Creatinine 0.63 Est GFR ( Amer) 141.7 Est GFR (Non-Af Amer) 110.2 BUN/Creatinine Ratio 4.8 L Glucose 92 Calcium 7.8 L Phosphorus 2.9 Magnesium 2.0 Total Bilirubin AST ALT Alkaline Phosphatase Ammonia Total Creatine Kinase Total Protein Albumin Globulin Albumin/Globulin Ratio Salicylates 12/14/17 12/14/17 12/15/17 05:30 05:30 05:20 WBC 8.4 RBC 3.78 L Hgb 10.5 L Hct 34 L MCV 91 MCH 28 MCHC 31 RDW 16 H Plt Count 234 MPV 8.7 Neut % (Auto) Lymph % (Auto) Lee % (Auto) Eos % (Auto) Baso % (Auto) Absolute Neuts (auto) Absolute Lymphs (auto) Absolute Monos (auto) Absolute Eos (auto) Absolute Basos (auto) Absolute Nucleated RBC Nucleated RBC % Sodium 140 Potassium 3.2 L Chloride 110 Carbon Dioxide 23 Anion Gap 7 BUN 4 L Creatinine 0.62 Est GFR ( Amer) 144.4 Est GFR (Non-Af Amer) 112.3 BUN/Creatinine Ratio 6.5 L Glucose 95 Calcium 8.2 L Phosphorus 2.4 L Magnesium 1.7 L Total Bilirubin 0.40 AST 14 ALT 10 Alkaline Phosphatase 59 Ammonia 48 Total Creatine Kinase Total Protein 5.0 L Albumin 3.1 L Globulin 1.9 L Albumin/Globulin Ratio 1.6 Salicylates 12/15/17 12/15/17 12/16/17 05:20 06:09 06:03 WBC RBC Hgb Hct MCV MCH MCHC RDW Plt Count MPV Neut % (Auto) Lymph % (Auto) Lee % (Auto) Eos % (Auto) Baso % (Auto) Absolute Neuts (auto) Absolute Lymphs (auto) Absolute Monos (auto) Absolute Eos (auto) Absolute Basos (auto) Absolute Nucleated RBC Nucleated RBC % Sodium 137 139 Potassium TNP 3.4 L 3.6 Chloride 108 109 Carbon Dioxide 17 L 20 L Anion Gap 12 H 10 BUN 7 5 L Creatinine 0.71 0.63 Est GFR ( Amer) 123.5 141.7 Est GFR (Non-Af Amer) 96.0 110.2 BUN/Creatinine Ratio 9.9 7.9 L Glucose 73 76 Calcium 8.3 L 8.8 Phosphorus Magnesium Total Bilirubin 0.30 AST 11 L ALT 9 Alkaline Phosphatase 66 Ammonia Total Creatine Kinase Total Protein 5.8 L Albumin 3.4 Globulin 2.4 Albumin/Globulin Ratio 1.4 Salicylates Exam Appearance: Healthy Appearing, Thin Framed Hygiene: Normal Grooming: Fairly Well Kept Psychomotor Activities: Normal Exhibits Abnormal Movement: No Attitude and Relatedness: Manipulative Eye Contact: Fair - Speech Quality: Unpressured Latencies: Normal Quantity: Terse Patient's Decription of Mood: "Okay" Observed Affect: Depressed Patient's Thought Process: Coherent, Circumstantial Thought Content: No Passive Wish, No Suicidal Planning, No Homicidal Ideation, No Paranoid Ideation Experiencing Hallucinations: No, Sensorium is Clear Type of Hallucinations: Visual: No, Auditory: No, Command: No Level of Consciousness: Alert Orientation: Yes Intact, Yes Orientated to Time, Yes Orientated to Place, Yes Orientated to Person Impulse Control: Impaired Insight and Judgement: Impaired Impression - Impression Clinical Impression: 32 y.o. single, white female with a history of affective instability, chronic cannabis misuse and borderline personality organization admitted to the ICU with an intentional polydrug overdose on alprazolam, gabapentin, amitriptyline and bupropion SR following an appointment at [facility] in which she was informed that her therapist would be leaving the clinic. Inpatient DSM-V Dx: F32.9 Merits Inpatient Hospitalization: Yes Problem List - MHU Problems Type of Problem: Mood Status of Problem: Active Plan - Treatment Plan Treatment Plan: The patient is medically cleared for psychiatric inpatient care, however, there are no available beds on the [facility]. I have spoken with the staff on [facility] and they will initiate referral process for outside facility transfer. Patient should remain on 1:1 for safety. I will discontinue amitriptyline due to poor efficacy and dangerousness in overdose. Start quetiapine 50mg PO qhs. Psychiatry will continue to follow. Continued Medication Management: Different Medication Medications: Current Medications Acetaminophen (Tylenol Tab*) 650 mg PO Q6H PRN PRN Reason: FEVER/PAIN Alprazolam (Xanax Tab*) 0.5 mg PO Q6H PRN PRN Reason: ANXIETY Last Admin: 12/18/17 12:46 Dose: 0.5 mg Amitriptyline HCl (Elavil Tab*) 10 mg PO BEDTIME EDWIN Last Admin: 12/17/17 20:42 Dose: 10 mg Bupropion HCl (Wellbutrin Sr Tab*) 150 mg PO BID EDWIN Last Admin: 12/18/17 07:49 Dose: 150 mg Ziprasidone (Geodon Im Inj*) 10 mg IM Q8H PRN PRN Reason: AGITATION - SEVERE Last Admin: 12/13/17 17:45 Dose: 10 mg Zolpidem Tartrate (Ambien Tab*) 5 mg PO BEDTIME PRN PRN Reason: INSOMNIA - Discharge Plan Discharge Plan: Inpatient Hospitalization
--- NOTE | 2017-12-18 15:27 | PN ---
Subjective Date of Service: 12/18/17 Interval History: HOSPITALIST PROGRESS NOTE Patient seen and examined at bedside. Care reviewed and d/w Sherita Palacios RN. She is anxious today, wants to sign her self out and go home. Became very emotional and teary eyed when I told her unfortunately she cannot sign out AMA and her [facility] admission is involuntary. Family History: Unchanged from Admission Social History: Unchanged from Admission Past Medical History: Unchanged from Admission Objective Active Medications: Acetaminophen (Tylenol Tab*) 650 mg PO Q6H PRN PRN Reason: FEVER/PAIN Alprazolam (Xanax Tab*) 0.5 mg PO Q6H PRN PRN Reason: ANXIETY Last Admin: 12/18/17 12:46 Dose: 0.5 mg Bupropion HCl (Wellbutrin Sr Tab*) 150 mg PO BID EDWIN Last Admin: 12/18/17 07:49 Dose: 150 mg Quetiapine Fumarate (Seroquel Tab*) 50 mg PO BEDTIME EDWIN Ziprasidone (Geodon Im Inj*) 10 mg IM Q8H PRN PRN Reason: AGITATION - SEVERE Last Admin: 12/13/17 17:45 Dose: 10 mg Vital Signs - 8 hr 12/18/17 12/18/17 12/18/17 07:44 08:00 12:46 Temperature 98.6 F Pulse Rate 99 Respiratory 17 16 18 Rate Blood Pressure 152/80 (mmHg) O2 Sat by Pulse 98 Oximetry Oxygen Devices in Use Now: None Appearance: Young lady sitting up in bed, anxious, but in NAD. Eyes: No Scleral Icterus Ears/Nose/Mouth/Throat: Mucous Membranes Moist Neck: Trachea Midline Neurological: Alert and Oriented x 3, NL Muscle Strength and Tone Result Diagrams: 12/15/17 05:20 12/16/17 06:03 Assess/Plan/Problems-Billing Assessment: Ms Del Rio is a 32yo F with PMH of borderline personality disorder, prior suicide attempts, who presented to ED unresponsive due to intentional polydrug overdose. - Patient Problems (1) Overdose Comment: - Intentional overdose of alprazolam, gabapentin, amitriptyline, Bupropion SR with intent to harm self. - Mental status is back at baseline, patient is apologetic and pleasant. - Continue 1:1 observation, but may go outside with supervision. - Patient cannot leave AMA as her admission to [facility] is involuntary. - Awaiting bed at [facility] for transfer. - Continue Alprazolam, Bupropion, and Psych added Quetiapine at bedtime. (2) DVT prophylaxis Comment: - Ambulation. (3) Full code status Status and Disposition: Inpatient.
[2017-12-18] MEDS: QUEtiapine TAB* 25 MG PO SCH (20:17)
[2017-12-19] MEDS: buPROPion SR TAB.SR* 150 MG PO SCH ×2 (09:56→21:50)
--- NOTE | 2017-12-19 11:21 | CONSULT ---
Identification - Patient Identification Reason for Psychiatric Consultation: Suicidal Ideation -: Patient is a 32 year old, F admitted on 12/12/17. - MHU Identification Employment Status: Employed Hx Psychiatric Hospitalization: Yes History - Objective HPI: Taylor remains depressed with a tearful, constricted affect. Complains that sleep has been poor, despite amitriptyline. She denies SI and would like to go home. She is on a 1:1 for safety. Awaiting transfer to [facility]. Lab Results: Laboratory Tests 12/12/17 12/12/17 12/12/17 18:00 22:04 23:48 WBC RBC Hgb Hct MCV MCH MCHC RDW Plt Count MPV Neut % (Auto) Lymph % (Auto) [place] % (Auto) Eos % (Auto) Baso % (Auto) Absolute Neuts (auto) Absolute Lymphs (auto) Absolute Monos (auto) Absolute Eos (auto) Absolute Basos (auto) Absolute Nucleated RBC Nucleated RBC % Sodium 137 L 139 Potassium 3.5 3.4 L Chloride 110 112 H Carbon Dioxide 20 L 20 L Anion Gap 7 7 BUN 5 L 4 L Creatinine 0.71 0.75 Est GFR ( Amer) 123.5 115.9 Est GFR (Non-Af Amer) 96.0 90.1 BUN/Creatinine Ratio 7.0 L 5.3 L Glucose 89 100 Calcium 7.4 L 7.7 L Phosphorus Magnesium 1.7 L 1.9 Total Bilirubin AST ALT Alkaline Phosphatase Ammonia Total Creatine Kinase 57 Total Protein Albumin Globulin Albumin/Globulin Ratio Salicylates < 2.50 12/13/17 12/13/17 12/14/17 06:05 06:05 05:30 WBC 14.1 H 11.3 H RBC 3.91 L 3.68 L Hgb 10.9 L 10.3 L Hct 33 L 31 L MCV 85 85 MCH 28 28 MCHC 33 33 RDW 16 H 16 H Plt Count 343 294 MPV 7.9 8.1 Neut % (Auto) 83.3 H 81.6 Lymph % (Auto) 7.9 L 7.9 L [place] % (Auto) 7.6 H 8.1 H Eos % (Auto) 0.7 1.9 Baso % (Auto) 0.5 0.5 Absolute Neuts (auto) 11.8 H 9.2 H Absolute Lymphs (auto) 1.1 0.9 L Absolute Monos (auto) 1.1 H 0.9 H Absolute Eos (auto) 0.1 0.2 Absolute Basos (auto) 0.1 0.1 Absolute Nucleated RBC 0 0 Nucleated RBC % 0 0 Sodium 143 Potassium 3.8 Chloride 114 H Carbon Dioxide 24 Anion Gap 5 BUN 3 L Creatinine 0.63 Est GFR ( Amer) 141.7 Est GFR (Non-Af Amer) 110.2 BUN/Creatinine Ratio 4.8 L Glucose 92 Calcium 7.8 L Phosphorus 2.9 Magnesium 2.0 Total Bilirubin AST ALT Alkaline Phosphatase Ammonia Total Creatine Kinase Total Protein Albumin Globulin Albumin/Globulin Ratio Salicylates 12/14/17 12/14/17 12/15/17 05:30 05:30 05:20 WBC 8.4 RBC 3.78 L Hgb 10.5 L Hct 34 L MCV 91 MCH 28 MCHC 31 RDW 16 H Plt Count 234 MPV 8.7 Neut % (Auto) Lymph % (Auto) [place] % (Auto) Eos % (Auto) Baso % (Auto) Absolute Neuts (auto) Absolute Lymphs (auto) Absolute Monos (auto) Absolute Eos (auto) Absolute Basos (auto) Absolute Nucleated RBC Nucleated RBC % Sodium 140 Potassium 3.2 L Chloride 110 Carbon Dioxide 23 Anion Gap 7 BUN 4 L Creatinine 0.62 Est GFR ( Amer) 144.4 Est GFR (Non-Af Amer) 112.3 BUN/Creatinine Ratio 6.5 L Glucose 95 Calcium 8.2 L Phosphorus 2.4 L Magnesium 1.7 L Total Bilirubin 0.40 AST 14 ALT 10 Alkaline Phosphatase 59 Ammonia 48 Total Creatine Kinase Total Protein 5.0 L Albumin 3.1 L Globulin 1.9 L Albumin/Globulin Ratio 1.6 Salicylates 12/15/17 12/15/17 12/16/17 05:20 06:09 06:03 WBC RBC Hgb Hct MCV MCH MCHC RDW Plt Count MPV Neut % (Auto) Lymph % (Auto) [place] % (Auto) Eos % (Auto) Baso % (Auto) Absolute Neuts (auto) Absolute Lymphs (auto) Absolute Monos (auto) Absolute Eos (auto) Absolute Basos (auto) Absolute Nucleated RBC Nucleated RBC % Sodium 137 139 Potassium TNP 3.4 L 3.6 Chloride 108 109 Carbon Dioxide 17 L 20 L Anion Gap 12 H 10 BUN 7 5 L Creatinine 0.71 0.63 Est GFR ( Amer) 123.5 141.7 Est GFR (Non-Af Amer) 96.0 110.2 BUN/Creatinine Ratio 9.9 7.9 L Glucose 73 76 Calcium 8.3 L 8.8 Phosphorus Magnesium Total Bilirubin 0.30 AST 11 L ALT 9 Alkaline Phosphatase 66 Ammonia Total Creatine Kinase Total Protein 5.8 L Albumin 3.4 Globulin 2.4 Albumin/Globulin Ratio 1.4 Salicylates Exam Appearance: Healthy Appearing, Thin Framed Hygiene: Normal Grooming: Fairly Well Kept Psychomotor Activities: Normal Exhibits Abnormal Movement: No Attitude and Relatedness: Manipulative Eye Contact: Fair - Speech Quality: Unpressured Latencies: Normal Quantity: Terse Patient's Decription of Mood: "Okay" Observed Affect: Depressed Patient's Thought Process: Coherent, Circumstantial Thought Content: No Passive Wish, No Suicidal Planning, No Homicidal Ideation, No Paranoid Ideation Experiencing Hallucinations: No, Sensorium is Clear Type of Hallucinations: Visual: No, Auditory: No, Command: No Level of Consciousness: Alert Orientation: Yes Intact, Yes Orientated to Time, Yes Orientated to Place, Yes Orientated to Person Impulse Control: Impaired Insight and Judgement: Impaired Impression - Impression Clinical Impression: 32 y.o. single, white female with a history of affective instability, chronic cannabis misuse and borderline personality organization admitted to the ICU with an intentional polydrug overdose on alprazolam, gabapentin, amitriptyline and bupropion SR following an appointment at [facility] in which she was informed that her therapist would be leaving the clinic. Inpatient DSM-V Dx: F32.9 Merits Inpatient Hospitalization: Yes Problem List - MHU Problems Type of Problem: Mood Status of Problem: Active Plan - Treatment Plan Treatment Plan: The patient is medically cleared for psychiatric inpatient care, however, there are no available beds on the [facility]. The patient has been accepted for transfer to the [facility] at [facility]. Psychiatry is signing off but will re- engage in the event that the patient is not transferred for whatever reason. Continued Medication Management: Different Medication Medications: Current Medications Acetaminophen (Tylenol Tab*) 650 mg PO Q6H PRN PRN Reason: FEVER/PAIN Alprazolam (Xanax Tab*) 0.5 mg PO Q6H PRN PRN Reason: ANXIETY Last Admin: 12/18/17 12:46 Dose: 0.5 mg Bupropion HCl (Wellbutrin Sr Tab*) 150 mg PO BID EDWIN Last Admin: 12/19/17 09:56 Dose: 150 mg Quetiapine Fumarate (Seroquel Tab*) 50 mg PO BEDTIME EDWIN Last Admin: 12/18/17 20:17 Dose: 50 mg Ziprasidone (Geodon Im Inj*) 10 mg IM Q8H PRN PRN Reason: AGITATION - SEVERE Last Admin: 12/13/17 17:45 Dose: 10 mg - Discharge Plan Discharge Plan: Inpatient Hospitalization
[2017-12-19 12:46] LABS: ABS Basophils 0.1 10^3/ul (0-0.2); ABS Eosinophils 0.1 10^3/ul (0-0.6); ABS Lymphocytes 1.5 10^3/ul (1.0-4.8); ABS Monocytes 0.6 10^3/ul (0-0.8); ABS Neutrophils 5.7 10^3/ul (1.5-7.7); ABS Nucleated RBC 0 10^3/ul; Hematocrit 40 % (35-47); Hemoglobin 13.4 g/dl (12.0-16.0); Mean Corpuscular HGB Conc 34 g/dl (31-36); Mean Corpuscular Hemoglobin 28 pg (27-31); Mean Corpuscular Volume 83 fL (80-97); Mean Platelet Volume 8.1 um3 (7.4-10.4); Nucleated Red Blood Cells % 0; Platelet Count 422 10^3/ul (150-450); Red Blood Count 4.77 10^6/ul (4.00-5.40); Red Cell Distribution Width 16 % (10.5-15)
[2017-12-19 13:07] VITALS: BP 145/88
--- NOTE | 2017-12-19 14:15 | PN ---
Subjective Date of Service: 12/19/17 Interval History: HOSPITALIST PROGRESS NOTE Patient was sleeping and I did not wake her up. Family History: Unchanged from Admission Social History: Unchanged from Admission Past Medical History: Unchanged from Admission Objective Active Medications: Acetaminophen (Tylenol Tab*) 650 mg PO Q6H PRN PRN Reason: FEVER/PAIN Alprazolam (Xanax Tab*) 0.5 mg PO Q6H PRN PRN Reason: ANXIETY Last Admin: 12/18/17 12:46 Dose: 0.5 mg Bupropion HCl (Wellbutrin Sr Tab*) 150 mg PO BID [facility] Last Admin: 12/19/17 09:56 Dose: 150 mg Quetiapine Fumarate (Seroquel Tab*) 50 mg PO BEDTIME [facility] Last Admin: 12/18/17 20:17 Dose: 50 mg Ziprasidone (Geodon Im Inj*) 10 mg IM Q8H PRN PRN Reason: AGITATION - SEVERE Last Admin: 12/13/17 17:45 Dose: 10 mg Vital Signs - 8 hr 12/19/17 12/19/17 08:00 12:00 Temperature 98.5 F Pulse Rate 107 Respiratory 16 17 Rate Blood Pressure 145/88 (mmHg) O2 Sat by Pulse 100 Oximetry Oxygen Devices in Use Now: None Appearance: Young lady lying in bed in NAD. Neurological: - - Sleeping Result Diagrams: 12/19/17 12:30 12/19/17 12:30 Assess/Plan/Problems-Billing Assessment: Ms Del Rio is a 32yo F with PMH of borderline personality disorder, prior suicide attempts, who presented to ED unresponsive due to intentional polydrug overdose. - Patient Problems (1) Overdose Comment: - Intentional overdose of alprazolam, gabapentin, amitriptyline, Bupropion SR with intent to harm self. - Mental status is back at baseline, patient is apologetic and pleasant. - Continue 1:1 observation, but may go outside with supervision. - Patient cannot leave AMA as her admission to [facility] is involuntary. - Continue Alprazolam, Bupropion, and Quetiapine at bedtime. - Awaiting bed availability at BSU or another Facility. - CBC and BMP are within normal limits and her EKG shows only sinus tachycardia , with no QT prolongation. (2) DVT prophylaxis Comment: - Ambulation. (3) Full code status Status and Disposition: Inpatient. Stable for transfer to [facility].
[2017-12-19] MEDS: ALPRAZolam TAB* 0.5 MG PO PRN (17:30)
--- NOTE | 2017-12-19 21:45 | PN ---
Progress Note - Progress Note Date of Service: 12/19/17 Note: Patient accepted to inpatient psych, discharge order placed for transfer. Has been medically cleared.
[2017-12-19] MEDS: QUEtiapine TAB* 25 MG PO SCH (21:50)
--- NOTE | 2017-12-21 11:29 | DS ---
CC: Dr. Yulissa Alvarado; Dr. Patrick; Dr. Morales DISCHARGE SUMMARY: DATE OF ADMISSION: 12/12/17 DATE OF DISCHARGE: 12/19/17 PRIMARY CARE PROVIDER: Dr. Yulissa Alvarado. CRITICAL CARE PROVIDER: Dr. Patrick. CONSULTING PSYCHIATRIST: Dr. Morales. DISCHARGE DIAGNOSIS: Intentional suicide attempt with ingestion of alprazolam, gabapentin, amitriptyline, bupropion presumably. SECONDARY DIAGNOSIS: Depression with a history of 1 prior suicide attempt. MEDICATIONS AT THE TIME OF TRANSFER: 1. Alprazolam 0.5 mg p.o. t.i.d. 2. Acetaminophen 650 mg p.o. q.4 hours p.r.n. pain or fever. 3. Maalox Plus 30 mL p.o. q.4 hours p.r.n. indigestion. 4. Dulcolax 10 mg p.o. daily as needed for constipation. 5. Bupropion SR 150 mg p.o. b.i.d. 6. Colace 100 mg p.o. b.i.d. 7. Hydroxyzine 50 mg p.o. q.6 hours p.r.n. anxiety. 8. Multivitamin 1 tablet p.o. daily. 9. Seroquel 100 mg p.o. at bedtime. HOSPITAL COURSE: Ms. Del Rio is a 32-year-old lady with a past medical history as stated above that presented to the emergency room after being found unresponsive. History was obtained from a friend that says that the patient was working with her and she became progressively lethargic and then unresponsive. There was concern for possible ingestion as she was found to have empty bottles of gabapentin, bupropion, and amitriptyline. For more details about her presentation, I refer you to her history and physical. Poison Control was consulted and recommended charcoal and whole bowel irrigation. As the patient was lethargic, it was felt that she would not be able to protect her airway, so she was intubated in the emergency room. An NG tube and a rectal tube were also placed to administer charcoal and whole bowel irrigation. There was no respiratory failure. The intubation was only for airway protection. While in the ICU, the patient's mental status progressively improved and she was seen in consultation by mental health (Dr. Morales). His assessment was that the patient is a 32-year-old single white female with a history of affective instability, chronic cannabis misuse, and borderline personality organization, who is currently admitted to ICU following intentional polydrug overdose presumably on alprazolam, gabapentin, amitriptyline, and bupropion SR, who reports that she had attempted suicide after discovering that her therapist will be leaving the [facility]. This triggered very severe abandonment reactions and the patient impulsively overdosed on her medications despite her insistence that this was a one-off event. Dr. Morales was concerned that this this is her second overdose resulting in ICU admission and concerned about her significant weight loss over the past 6 months and he believed the patient would benefit from further stabilization on the BSU. Despite her overdose, the patient's EKG did not show significant QT prolongations. She only had sinus tachycardia. The patient had progressive improvement of her condition and stayed in the medical floor, waiting for a bed in the mental health unit that was available on 12/19/17 when the patient was transferred. PHYSICAL EXAMINATION: Vital Signs: Temperature 98.5, heart rate is 90, respiratory rate is 20, oxygen saturation is 100% on room air, blood pressure is 128/82. General: The patient is a young lady sitting up in the bed, in no acute distress. CVS: Normal S1, S2. Regular rate and rhythm. Chest: Breath sounds bilaterally with no added sounds. Neuro: She is alert, oriented x3. She is able to move all 4 extremities. DIET: Regular diet. ACTIVITY: As tolerated. DISPOSITION: To the mental health unit. STATUS WHILE IN THE HOSPITAL: Inpatient. Please keep in mind this is a summarized version of this patient's hospital stay. If you need more information , please feel free to call me at [phone] or please obtain the full medical records. TIME SPENT: Approximately 45 minutes were spent to complete this discharge. [id number]/[facility] #: [id number] [facility] CENTERSuzanne
== END 2017-12-19 20:57 | DRG 812 ==
LOC: ED 13:24 → ICU 15:16 → MED 12-15 17:31
PROVIDERS: ADMIT Internal Medicine; ATTEND Pediatrics
PROC: 0BH17EZ Insertion of Endotracheal Airway into Trachea, Via Natural or Artificial Opening (ICD-10-PCS; principal; 2017-12-12)
PROC: 5A1935Z Respiratory Ventilation, Less than 24 Consecutive Hours (ICD-10-PCS; 2017-12-12)
PROC: 0D9670Z Drainage of Stomach with Drainage Device, Via Natural or Artificial Opening (ICD-10-PCS; 2017-12-12)
PROC: 3E1H78Z Irrigation of Lower GI using Irrigating Substance, Via Natural or Artificial Opening (ICD-10-PCS; 2017-12-12)
DX: T42.4X2A Poisoning by benzodiazepines, intentional self-harm, initial encounter (principal); G92 Toxic encephalopathy; J96.00 Acute respiratory failure, unspecified whether with hypoxia or hypercapnia; T42.6X2A Poisoning by other antiepileptic and sedative-hypnotic drugs, intentional self-harm, initial encounter; T43.012A Poisoning by tricyclic antidepressants, intentional self-harm, initial encounter; T43.292A Poisoning by other antidepressants, intentional self-harm, initial encounter; F32.9 Major depressive disorder, single episode, unspecified; F12.10 Cannabis abuse, uncomplicated; F60.3 Borderline personality disorder; F10.21 Alcohol dependence, in remission; Y92.017 Garden or yard in single-family (private) house as the place of occurrence of the external cause; Z79.899 Other long term (current) drug therapy; Z81.8 Family history of other mental and behavioral disorders; Z88.8 Allergy status to other drugs, medicaments and biological substances
CPT/HCPCS: 36415; 70450; 71045; 80048; 80053; 80307; 80320; 80329; 81003; 82140; 82550; 82803; 83605; 83735; 84100; 84443; 84484; 84702; 85025; 85027; 87641; 93005; 94003; 99285; A9270-GY; G0480; J0330; J1644; J2060; J2250; J2270; J2405; J2704; J3010; J3475; J3480; J3486

== ENCOUNTER 2017-12-19 21:58 | Inpatient (IN) | payer MEDICARE, MEDICAID ==
[2017-12-19] MEDS ORDERED: Al Hydrox/Mg Hydrox/Simet LIQ* 30 ML UDC PO PRN (22:55)
[2017-12-19] MEDS ORDERED: Acetaminophen TAB* 325 MG PO PRN (22:55)
[2017-12-19] MEDS ORDERED: hydrOXYzine HCL TAB* 25 MG PO PRN (22:57)
[2017-12-19] MEDS ORDERED: QUEtiapine TAB* 25 MG PO SCH (23:00)
[2017-12-19] MEDS: buPROPion SR TAB.SR* 150 MG PO SCH (23:06)
[2017-12-20] MEDS: buPROPion SR TAB.SR* 150 MG PO SCH ×2 (09:13→21:21)
[2017-12-20] MEDS: Vitamin THERAPEUTIC TAB PO SCH (09:13)
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
[2017-12-20] MEDS ORDERED: Bisacodyl EC TAB* 5 MG PO PRN (13:55)
[2017-12-20] MEDS ORDERED: hydrOXYzine HCL TAB* 50 MG PO PRN (13:58)
[2017-12-20] MEDS: Docusate CAP* 100 MG PO SCH ×2 (14:50→21:21)
[2017-12-20 15:38] LABS: Corrected Retic Count 1.2 % (0.5-1.5); Hematocrit for Retic CNT 42 % (35-47); Immature Retic Fraction 0.43
[2017-12-20] MEDS: ALPRAZolam TAB* 0.5 MG PO SCH (17:07)
[2017-12-20] MEDS: QUEtiapine TAB* 25 MG PO SCH (21:21)
[2017-12-21] MEDS: ALPRAZolam TAB* 0.5 MG PO SCH ×3 (08:37→17:41)
[2017-12-21] MEDS: buPROPion SR TAB.SR* 150 MG PO SCH ×2 (08:37→20:45)
[2017-12-21] MEDS: Docusate CAP* 100 MG PO SCH ×2 (08:37→20:45)
[2017-12-21] MEDS: Vitamin THERAPEUTIC TAB PO SCH (08:37)
--- NOTE | 2017-12-21 11:29 | PN ---
MHU: Group Therapy Note - Service Type Service Type: 62860 Group Psychotherapy - Cognitive Behavioral Group Therapy ( CBT):Patient was attentive and participatory in CBT programming this morning, and remained in good behavioral control. Patient expressed positive insights regarding relevant treatment interventions and goals.
--- NOTE | 2017-12-21 12:45 | PN ---
Subjective - Subjective Date of Service: 12/21/17 Service Type: 34051 Hosp care 15 min low complexity Subjective: Chasidy is seen in coverage for Dr. Little. She continues to display constricted affect but has been adherent with milieu programming and appears social with peers. She is tolerating medications well and slept better with 100mg of quetiapine last night. She continues to deny SI and expresses an interest in leaving the hospital to return to work. Objective - Appearance Appearance: Well Developed/Nourished Dysmorphic Features: No Hygiene: Normal Grooming: Well Kept - Behavior Psychomotor Activities: Normal Exhibits Abnormal Movement: No - Attitude and Relatedness Attitude and Relatedness: Cooperative Eye Contact: Fair - Speech Quality: Unpressured Latencies: Normal Quantity: Appropriate - Mood Patient's Decription of Mood: "Okay" - Affect Observed Affect: Constricted Affect Consistent with: Dysphoria - Thought Process Patient's Thought Process: Coherent Thought Content: No Passive Wish, No Suicidal Planning, No Homicidal Ideation, No Paranoid Ideation - Sensorium Experiencing Hallucinations: No, Sensorium is Clear Type of Hallucinations: Visual: Yes, Auditory: Yes, Command: Yes - Level of Consciousness Level of Consciousness: Alert Orientation: Yes Intact, Yes Orientated to Time, Yes Orientated to Place, Yes Orientated to Person - Impulse Control Impulse Control: Tenuous - Insight and Judgement Insight and Judgement: Fair - Group Participation Particating in Group Activities: Yes - Medication Management Medication Management Adherence: Yes Assessment - Assessment Merits Inpatient Hospitalization: For Immediate Safety, For Stabilization Inpatient DSM-V Dx: F43.10 Clinical Impression: 32 y.o. single, white female with a history of affective instability, chronic cannabis misuse and borderline personality organization admitted to the ICU with an intentional polydrug overdose on alprazolam, gabapentin, amitriptyline and bupropion SR following an appointment at [facility] in which she was informed that her therapist would be leaving the clinic. Plan - Plan Treatment Plan: Name: CHASIDY MCCOY Birthdate: 1985 [id number] Patient on a regimen of bupropion SR 150mg PO BID, xanax 0.5mg PO TID and quetiapine 100mg PO qhs, which she is tolerating well. Will continue to treat on a locked, secured unit. F/U will be with [facility] clinic after discharge. Continued Medication Management: Different Medication Medications: Current Medications Acetaminophen (Tylenol Tab*) 650 mg PO Q4H PRN PRN Reason: PAIN or TEMP > 101 F Al Hydrox/Mg Hydrox/Simethicone (Maalox Plus*) 30 ml PO Q4H PRN PRN Reason: INDIGESTION Alprazolam (Xanax Tab*) 0.5 mg PO TID@08,12,17 [facility] Last Admin: 12/21/17 08:37 Dose: 0.5 mg Bisacodyl (Dulcolax Ec Tab*) 10 mg PO DAILY PRN PRN Reason: CONSTIPATION Bupropion HCl (Wellbutrin Sr Tab*) 150 mg PO BID [facility] Last Admin: 12/21/17 08:37 Dose: 150 mg Docusate Sodium (Colace Cap*) 100 mg PO BID [facility] Last Admin: 12/21/17 08:37 Dose: 100 mg Hydroxyzine HCl (Atarax Tab*) 50 mg PO Q6H PRN PRN Reason: ANXIETY Multivitamins (Theragran Tab*) 1 tab PO DAILY [facility] Last Admin: 12/21/17 08:37 Dose: 1 tab Quetiapine Fumarate (Seroquel Tab*) 100 mg PO BEDTIME [facility] Last Admin: 12/20/17 21:21 Dose: 100 mg - Discharge Plan Discharge Plan: Inpatient Hospitalization
[2017-12-21] MEDS: QUEtiapine TAB* 25 MG PO SCH (20:45)
[2017-12-22] MEDS: Vitamin THERAPEUTIC TAB PO SCH (08:14)
[2017-12-22] MEDS: buPROPion SR TAB.SR* 150 MG PO SCH (08:15)
[2017-12-22] MEDS: Docusate CAP* 100 MG PO SCH (08:15)
[2017-12-22] MEDS: ALPRAZolam TAB* 0.5 MG PO SCH ×2 (08:15→12:15)
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
[2017-12-22 14:19] VITALS: BP 130/84
== END 2017-12-22 14:23 | disposition home or self-care (01) | DRG 882 ==
LOC: BSU 21:58
PROVIDERS: ADMIT Psychiatry & Neurology Psychiatry; ATTEND Psychiatry & Neurology Psychiatry
PROC: GZHZZZZ Group Psychotherapy (ICD-10-PCS; principal; 2017-12-19)
DX: F43.10 Post-traumatic stress disorder, unspecified (principal); F81.9 Developmental disorder of scholastic skills, unspecified; F40.01 Agoraphobia with panic disorder; F32.89 Other specified depressive episodes; D50.9 Iron deficiency anemia, unspecified; G47.00 Insomnia, unspecified; Z91.5 Personal history of self-harm; Z81.8 Family history of other mental and behavioral disorders
CPT/HCPCS: 36415; 80061; 82728; 83036; 83540; 83550; 84436; 84439; 85045; 90853; 99222; 99231; 99238; A9270-GY